=== PATIENT | female | born 1995 | race Caucasian/White ===

== ENCOUNTER 2023-02-10 15:50 | Inpatient (IN) | payer BC ==
[2023-02-10 16:25] LABS: APPEARANCE,URINE CLEAR; BILIRUBIN,URINE NEGATIVE (NEGATIVE); COLOR,URINE YELLOW; GLUCOSE,URINE NEGATIVE (NEGATIVE); KETONES,URINE NEGATIVE (NEGATIVE); LEUKOCYTE ESTERASE,URINE NEGATIVE (NEGATIVE); NITRITE,URINE NEGATIVE (NEGATIVE); OCCULT BLOOD,URINE NEGATIVE (NEGATIVE); PH,URINE 6.5 (5.0-8.0); PROTEIN,URINE NEGATIVE (NEGATIVE); UROBILINOGEN,URINE 0.2 EU/dL (<2.0)
[2023-02-10] MEDS ORDERED: Lidocaine 1% 50 ML MDV INJECT PRN (16:48)
[2023-02-10] MEDS ORDERED: Sodium Chloride 0.9% 2.5 ML Syringe FLUSH PRN (16:48)
[2023-02-10] MEDS ORDERED: Water For Irrigation,Sterile 1,000 ML Container IRR PRN (16:48)
[2023-02-10] MEDS ORDERED: Sodium Chloride 0.9% 10 ML Syringe FLUSH PRN (16:48)
[2023-02-10] MEDS ORDERED: Methylergonovine 0.2 MG/1 ML Amp IM PRN (16:48)
[2023-02-10] MEDS ORDERED: Tranexamic Acid IN NACL,ISO-OS 1,000 MG in Premix Bag 1 BAG IV PRN ×2 (16:48)
[2023-02-10] MEDS ORDERED: Misoprostol 200 MCG Tab PO PRN (16:48)
[2023-02-10] MEDS ORDERED: Butorphanol 1 MG/ML SDV IVPUSH PRN (16:48)
[2023-02-10] MEDS ORDERED: Sodium Chloride 0.9% 20 ML SDV IV PRN (16:48)
[2023-02-10] MEDS ORDERED: Carboprost Tromethamine 250 MCG/1 mL Vial IM PRN (16:48)
[2023-02-10] MEDS ORDERED: Oxytocin/0.9 % Sodium Chloride 30 UNIT/500 ML BAG IV SCH ×2 (17:00→18:45)
[2023-02-10] MEDS ORDERED: Labetalol 100 MG/20 ML MDV IVPUSH PRN (17:14)
[2023-02-10] MEDS ORDERED: Ampicillin 2 GM in Sodium Chloride 0.9% 100 ML IV ONE (18:00)
[2023-02-10 18:06] LABS: HEMOGLOBIN 14.5 g/dL (12.0-16.0); MEAN CORPUSCULAR HEMOGLOBIN 29.3 pg (27.0-32.0); MEAN CORPUSCULAR HGB CONC 33.7 g/dL (31.0-37.0); MEAN CORPUSCULAR VOLUME 86.9 fL (80.0-98.0); MEAN PLATELET VOLUME 10.8 fL (7.40-12.00); RED BLOOD CELL COUNT 4.95 M/uL (4.30-5.90); WHITE BLOOD CELL COUNT,WBC 9.16 K/uL (4.0-11.0)
[2023-02-10 18:31] LABS: A/G RATIO 0.7 (0.9-1.6); ALBUMIN 2.6 g/dL (3.4-5.0); BILIRUBIN TOTAL 0.4 mg/dL (0.2-1.0); CALCIUM 8.5 mg/dL (8.5-10.1); CREATININE 0.6 mg/dL (0.6-1.0); EST CRCL DRUG DOSING (CG) 131.85 mL/min; PROTEIN TOTAL,TP 6.5 g/dL (6.4-8.2)
[2023-02-10] MEDS ORDERED: Misoprostol 25 MCG (1/4 of 100 MCG) Tab VAG PRN ×2 (18:31)
[2023-02-10] MEDS ORDERED: Terbutaline 1 MG/ML SDV SUBCUT PRN (18:31)
[2023-02-10] MEDS ORDERED: ePHEDrine 50 MG/ML SDV IVPUSH PRN ×2 (19:39)
[2023-02-10] MEDS ORDERED: Phenylephrine HCl 0.5 MG/5 ML AMP IVPUSH PRN (19:39)
[2023-02-10] MEDS ORDERED: Ropivacaine HCl/PF 400 MG in Premix Bag 1 BAG EPIDUR SCH (19:45)
[2023-02-10] MEDS: Ampicillin 1 GM in Sodium Chloride 0.9% 50 ML IV SCH (21:53)
[2023-02-11] MEDS: Lactated Ringers 1,000 ML IV SCH ×4 (01:04→19:28)
[2023-02-11] MEDS: Ampicillin 1 GM in Sodium Chloride 0.9% 50 ML IV SCH ×5 (01:58→19:09)
[2023-02-11] MEDS ORDERED: Ondansetron 4 MG/2 ML SDV IVPUSH PRN (11:23)
[2023-02-11] MEDS ORDERED: Bisacodyl 10 MG Supp RECTAL PRN (21:53)
[2023-02-11] MEDS ORDERED: Ibuprofen 400 MG Tab PO PRN (21:53)
[2023-02-11] MEDS ORDERED: Lanolin 100% Cream 7 GM Tube TOP PRN (21:53)
[2023-02-11] MEDS ORDERED: Acetaminophen 500 MG Tab PO PRN ×2 (21:53)
[2023-02-11] MEDS ORDERED: Benzocaine/Menthol 20%-0.5% Spray 78 GM Cannister TOP PRN (21:53)
[2023-02-11] MEDS ORDERED: Witch Hazel Medicated Pads 40/Jar TOP PRN (21:53)
[2023-02-11] MEDS ORDERED: oxyCODONE 5 MG Tab PO PRN (21:53)
[2023-02-11] MEDS ORDERED: Docusate Sodium 100 MG Cap PO PRN (21:53)
[2023-02-11] MEDS ORDERED: Ibuprofen 800 MG Tab PO PRN (21:53)
[2023-02-11 22:00] LABS: PH,UMBILICAL ARTERIAL 7.206 (7.18-7.38); PH,UMBILICAL VENOUS 7.297 (7.25-7.45)
[2023-02-12 06:38] LABS: HEMATOCRIT 34.7 % (36.0-46.0); HEMOGLOBIN 11.5 g/dL (12.0-16.0)
== END 2023-02-13 13:45 | disposition home or self-care (01) | DRG 560 ==
LOC: MW.OBCHECK 15:50 → MW.OB 15:51 → MW.OBCHECK 16:17 → MW.OB 16:18 → OBSVTOIN 02-11 21:24 → MW.OB 02-12 02:01
PROVIDERS: ADMIT Obstetrics & Gynecology; ATTEND Obstetrics & Gynecology
PROC: 10E0XZZ Delivery of Products of Conception, External Approach (ICD-10-PCS; principal; 2023-02-11)
PROC: 0KQM0ZZ Repair Perineum Muscle, Open Approach (ICD-10-PCS; 2023-02-11)
PROC: 3E0R3BZ Introduction of Anesthetic Agent into Spinal Canal, Percutaneous Approach (ICD-10-PCS; 2023-02-11)
PROC: 00HU33Z Insertion of Infusion Device into Spinal Canal, Percutaneous Approach (ICD-10-PCS; 2023-02-11)
PROC: 3E033VJ Introduction of Other Hormone into Peripheral Vein, Percutaneous Approach (ICD-10-PCS; 2023-02-11)
DX: O48.0 Post-term pregnancy (principal); Z37.0 Single live birth; O36.63X0 Maternal care for excessive fetal growth, third trimester, not applicable or unspecified; O13.4 Gestational [pregnancy-induced] hypertension without significant proteinuria, complicating childbirth; O99.824 Streptococcus B carrier state complicating childbirth; O70.1 Second degree perineal laceration during delivery; Z3A.40 40 weeks gestation of pregnancy; O69.81X0 Labor and delivery complicated by cord around neck, without compression, not applicable or unspecified
CPT/HCPCS: 36415; 51702; 59409; 80053; 81003; 82803; 84550; 85014; 85018; 85027; 86592; 86850; 86900; 86901; A9270-GY; J0290; J2405; J2590; J3490; J7120